=== PATIENT | female | born 1980 | race Caucasian/White ===

== ENCOUNTER 2018-05-02 05:39 | Inpatient (IN) ==
[2018-05-02] MEDS ORDERED: ceFAZolin Inj 2,000 MG in Sodium Chlor 0.9% Inj 80 ML IV.SIG SCH (06:00)
[2018-05-02] MEDS ORDERED: Citric Acid/Sodium Citrate Liq 30 ML UDC PO SCH (06:00)
[2018-05-02 06:20] LABS: Baso # (Auto) 0.1 th/mm3 (0.0-0.2); Baso % (Auto) 0.4 % (0.0-2.0); Eos # (Auto) 0.2 th/mm3 (0.0-0.4); Eos % (Auto) 1.3 % (0.0-4.0); Hematocrit 36.7 % (35.0-46.0); Hemoglobin 12.8 gm/dL (11.6-15.3); Lymph # (Auto) 3.3 th/mm3 (1.0-4.8); Lymph % (Auto) 22.5 % (9.0-44.0); Mean Corpuscular Hemoglobin 32.1 pg (27.0-34.0); Mean Corpuscular Volume 91.9 fL (80.0-100.0); Mean Platelet Volume 8.1 fL (7.0-11.0); Mono # (Auto) 1.3 th/mm3 (0.0-0.9); Mono % (Auto) 9.1 % (0.0-8.0); Neut # (Auto) 9.7 th/mm3 (1.8-7.7); Neut % (Auto) 66.7 % (16.0-70.0); Platelet Count 223 th/mm3 (150-450); Red Blood Count 3.99 mil/mm3 (4.00-5.30); Red Cell Distribution Width 12.4 % (11.6-17.2); White Blood Count 14.5 th/mm3 (4.0-11.0)
[2018-05-02 06:30] LABS: Bilirubin,Urine Negative (Negative); Clarity,Urine Clear (Clear); Color,Urine Yellow (Yellw/Straw); Glucose,Urine (UA) Negative (Negative); Leukocyte Esterase,Urine Negative (Negative); Nitrite,Urine Negative (Negative); Urobilinogen,Urine 0.2 mg/dL (Less than 2)
[2018-05-02 06:36] LABS: Amphetamine Screen,Urine Neg (Neg); Barbiturate Screen,Urine Neg (Neg); Cannabinoid Screen,Urine Neg (Neg); Cocaine Screen,Urine Neg (Neg)
[2018-05-02 06:37] LABS: Opiate Screen,Urine Neg (Neg); Specific Gravity,Urine 1.029 (1.002-1.035)
[2018-05-02 06:38] LABS: Bacteria,Urine Rare /hpf; Squamous Epithelial Cell,Urine 0-5 /hpf (0-5); WBC,Urine 0-5 /hpf (0-5)
[2018-05-02 06:39] LABS: Mucus,Urine Few /lpf (Occasional)
[2018-05-02] MEDS ORDERED: Morphine Sulfate PF Inj 5 MG/10 ML Ampul ONE (07:09)
[2018-05-02] MEDS ORDERED: Naloxone Inj 0.4 MG/ML Vial IV.PUSH PRN (07:26)
[2018-05-02] MEDS ORDERED: fentaNYL Citrate Inj 100 MCG/2 ML Ampul ONE (07:54)
[2018-05-02] MEDS ORDERED: Simethicone 80 MG Chew Tablet PO PRN (08:45)
[2018-05-02] MEDS ORDERED: Oxytocin 30 Units/500ml Premix 30 UNITS/500 ML BAG IV.SIG ONE (08:45)
[2018-05-02] MEDS ORDERED: Acetaminophen 325 MG Tablet PO PRN (08:45)
--- NOTE | 2018-05-02 08:55 | P.OBDELI ---
Procedure Note Performed by: Brigido Parr MD Procedure: Repeat Low Transverse Section, Other (bilateral tubal ligation; single subserousal myomectomy) Indication for Delivery: Desired elective repeat Previous Condition: Myomectomy (anterior uterine surface, subserousal) Informed Consent Obtained: For anesthesia, For procedure Confirmed Correct: Patient, Procedure, Site, Time-out taken Anesthesia: Spinal Medication Prior to Procedure: As documented in eMAR Monitoring During Procedure: Blood pressure monitoring, personnel monitor, doppler, Pulse oximetry Urinary Catheter: Inserted using sterile technique, To dependent drainage Sterile Preparation: Duraprep, In usual fashion Position: Supine with wedge to right side, Supine with safety belt applied - Operative Features Skin Incision: Pfannenstiel Uterine Incision: Low transverse w/knife / scissors Membranes Ruptured: Artificially, Appearance of fluid (clear) Presentation: Occiput anterior Status of : Viable, Cord blood, Umbilical cord, Nursery present Placenta Delivered: Intact Medications: Antibiotics, Oxytocin Estimated blood loss (mL): 700 Procedure Tolerated: Well Maternal Condition: Stable Baby Condition: Stable - Infant : Female Infant Infant Delivery Date: 05/02/18 Weight: 3.062 kg Delivery of Infant: Assisted (vacuum x 1 pull) score (1 min): 9 score (5 min): 9
[2018-05-02] MEDS ORDERED: Oxytocin 30 Units/500ml Premix 30 UNITS/500 ML BAG ONE (09:05)
--- NOTE | 2018-05-02 09:23 | MP ---
cc: Brigido Parr MD DATE OF OPERATION: 05/02/2018 PREOPERATIVE DIAGNOSES: 1. Term intrauterine . 2. History of previous section for elective repeat section and tubal ligation. 3. History of uterine fibroid. 4. Upper respiratory infection. PROCEDURE: Repeat low transverse section, bilateral tubal ligation with modified Osbaldo technique and simple subserosal myomectomy of anterior fibroid approximately 5 cm. POSTOPERATIVE DIAGNOSIS: 1. Term intrauterine . 2. History of previous section for elective repeat section and tubal ligation. 3. History of uterine fibroid. SURGEON: Brigido Parr MD ANESTHESIA: Spinal. ESTIMATED BLOOD LOSS: 700 mL. DRAINS: Gibson to gravity. OPERATIVE FINDINGS: delivered with the aid of a vacuum x 1 pull. Apgars were 9 at 1 minute and 9 at 5. Baby weighed 6 pounds 12 ounces, clear fluid. 3-vessel cord. Normal fallopian tubes and ovaries, 5 cm anterior subserosal fibroid sent to pathology. INDICATIONS FOR THE PROCEDURE: Patient with a history of previous section for elective repeat, also elected for bilateral tubal ligation for sterilization at the time. Also, a discussion, if the fibroid was simple in the context of being able to be resected at the time of the , the patient consented for. PROCEDURE DESCRIPTION: The patient received Ancef 2 grams prophylactically. She had a documented LATEX ALLERGY and appropriate precautions were taken. She underwent spinal anesthetic with excellent result. She was prepped and draped. Gibson was inserted by sterile technique. Sequentials were placed on the lower extremities for venous thromboembolism prophylaxis. Timeout was conducted, agreed by all present in the room. The patient had excellent pain control. A Pfannenstiel incision was identified and then utilized taking the incision through the subcutaneous layer to the fascia. The fascia was scarred and distorted from the previous . This was opened sharply allowing identification of the rectus and then opening the rectus muscle in the midline through the peritoneum without complication. The incision was extended. Bladder blade was placed. The peritoneum was then incised to allow the bladder to be pushed inferiorly to the incision. The incision was then made with a scalpel transversely in the lower uterine segment with clear fluid. The infant was delivered with the aid of a vacuum to avoid trauma to the incision. Good tone and cry were noted. Delayed cord clamping for 45 seconds was accomplished without difficulty. The was then taken to the nursery staff present in good condition, good tone, vigorous cry. The cord sample was obtained. Placenta was removed intact. Uterus was then exteriorized, closing the uterine hysterotomy with a double closure using 0 Monocryl first as a running locking suture followed by a second imbricating suture. The myoma, which was the anterior surface towards the fundus, was excised using the Bovie taking down the perineum and then just minimal entry into the myometrial surface. This was then closed with a double layer of 0 Monocryl, first as a running locking suture, followed by a second layer of interrupted [id number] sutures with excellent result. The fallopian tubes were identified. The mesentery was opened using the Bovie and then using a 2-0 plain suture proximally and distally, the fallopian tubes were tied. Excision of the mid isthmic portion approximately 4 cm was removed. The ampullary portion on the left side was removed, as well. The tubal site was dry. There was no hematoma. The uterus was returned to its normal anatomic position in the pelvis. All free fluid was evacuated. The pelvis was then irrigated with clear normal saline and then all free fluid was aspirated. No evidence of hematoma. No active bleeding. A piece of Interceed was then placed over the myomectomy incision and then the peritoneal layer was closed with a running suture of 2-0 Monocryl, reapproximating the muscle bellies with interrupted 2-0 Monocryl and then closed the fascia with 0 Vicryl in a simple running fashion. The subcutaneous space was irrigated. Any small bleeders were cauterized and then closure of the space with a running 2-0 Monocryl, followed by a #1 Stratafix suture to close the skin. Steri-Strips were applied. Dressing was applied. The final counts were correct. The patient was stable. She was taken to the recovery room on room air and was doing well. MD JONATHAN Ronquillo/ELAN , 09:00 AM , 09:09 AM
[2018-05-02] MEDS: Amoxicillin/Clavulanate 500/125 MG Tablet PO SCH ×2 (11:46→20:40)
[2018-05-02] MEDS: guaiFENesin/Codeine Syrup 200 MG/20 MG 10 ML UDC PO PRN ×2 (11:47→17:36)
[2018-05-02] MEDS ORDERED: Phenylephrine/NS 1000 MCG/10ML Syringe IV.PUSH ONE (12:00)
[2018-05-02] MEDS ORDERED: Oxytocin 30 Units/500ml Premix 30 UNITS/500 ML BAG IV.SIG PRN (13:45)
[2018-05-02] MEDS: Ibuprofen 600 MG Tablet PO PRN ×2 (15:28→21:25)
[2018-05-02] MEDS: Senna/Docusate Sodium 8.6/50 MG Tablet PO PRN (20:40)
[2018-05-03] MEDS: guaiFENesin/Codeine Syrup 200 MG/20 MG 10 ML UDC PO PRN ×4 (00:31→21:35)
[2018-05-03] MEDS: Ibuprofen 600 MG Tablet PO PRN ×3 (03:46→17:19)
[2018-05-03] MEDS: Senna/Docusate Sodium 8.6/50 MG Tablet PO PRN ×2 (07:52→21:35)
[2018-05-03] MEDS: Amoxicillin/Clavulanate 500/125 MG Tablet PO SCH (08:01)
[2018-05-03 09:46] LABS: Baso % (Auto) 0.2 % (0.0-2.0); Eos # (Auto) 0.2 th/mm3 (0.0-0.4); Eos % (Auto) 2.3 % (0.0-4.0); Hematocrit 31.7 % (35.0-46.0); Lymph # (Auto) 2.1 th/mm3 (1.0-4.8); Lymph % (Auto) 19.4 % (9.0-44.0); Mean Corpuscular HGB Conc 34.9 % (32.0-36.0); Mean Corpuscular Hemoglobin 32.5 pg (27.0-34.0); Mean Corpuscular Volume 93.1 fL (80.0-100.0); Mean Platelet Volume 8.2 fL (7.0-11.0); Mono % (Auto) 8.9 % (0.0-8.0); Neut # (Auto) 7.5 th/mm3 (1.8-7.7); Neut % (Auto) 69.2 % (16.0-70.0); Platelet Count 199 th/mm3 (150-450); Red Cell Distribution Width 12.4 % (11.6-17.2); White Blood Count 10.8 th/mm3 (4.0-11.0)
--- NOTE | 2018-05-03 12:41 | P.PNOB ---
Subjective Post op day: 1 Interval history: nursing well no complaints Objective Vital Signs/I&O: Vital Signs 05/02/18 13:00 05/02/18 16:00 05/02/18 19:50 Temperature 98.4 F 98.1 F 98.1 F Pulse Rate 75 67 64 Respiratory Rate 18 18 18 Blood Pressure 106/65 111/67 116/72 05/03/18 00:30 05/03/18 08:00 Temperature 98.1 F 98.1 F Pulse Rate 81 77 Respiratory Rate 16 20 Blood Pressure 109/70 107/71 Result Diagrams: 05/03/18 08:32 Objective Remarks: GENERAL: Well-nourished, well-developed patient. CARDIOVASCULAR: Regular rate and rhythm without murmurs, gallops, or rubs. RESPIRATORY: Breath sounds equal bilaterally. No accessory muscle use. ABDOMEN/GI: Abdomen soft, non-tender, bowel sounds present. Incision: Clean, dry and intact. No martina! Fundus: Firm, non-tender at umbilicus. GENITOURINARY: Light to moderate bleeding. EXTREMITIES: No cyanosis or edema, non-tender, without signs of DVT. Medications and IVs: Active Medications Acetaminophen (Tylenol) 650 mg PO Q6H PRN PRN Reason: PAIN SCALE 1 TO 2 Amoxicillin/Clavulanate Potassium (Augmentin 500/125 Mg) 1 tab PO Q12HR [facility] Last Admin: 05/03/18 08:01 Dose: 1 tab Citric Acid/Sodium Citrate (Sodium Citrate/Citric Acid Liq) 30 ml PO WASTE ELIMINATION [facility] Stop: 05/06/18 05:59 Last Admin: 05/02/18 07:06 Dose: 30 ml Diphtheria/Pertussis/Tetanus Vacc (Boostrix Vaccine Inj) 0.5 ml IM .ONCE ONE Stop: 05/03/18 16:01 Guaifenesin/Codeine Phosphate (Robitussin Ac 200/20 Mg/10 Ml Liq) 10 ml PO Q6H PRN PRN Reason: COUGH Last Admin: 05/03/18 07:52 Dose: 10 ml Lactated Ringer's (Lr 1000 Ml Inj) 1,000 mls @ 150 mls/hr IV.CONT .Q6H40M [facility] Last Admin: 05/02/18 07:06 Dose: 150 mls/hr Cefazolin Sodium 2,000 mg/ (Sodium Chloride) 100 mls @ 200 mls/hr IV.SIG WASTE ELIMINATION [facility]MUND Stop: 05/06/18 05:59 Last Admin: 05/02/18 07:06 Dose: 200 mls/hr Oxytocin (Pitocin 30 Units/Ns 500 Ml Premix) 30 units in 500 mls @ 100 mls/hr IV.SIG PRN PRN PRN Reason: Heavy bleeding Stop: 05/03/18 13:44 Ibuprofen (Motrin) 600 mg PO Q6HR PRN PRN Reason: cramping Last Admin: 05/03/18 10:08 Dose: 600 mg Ketorolac Tromethamine (Toradol Inj) 30 mg IM Q6H PRN PRN Reason: SEE LABEL COMMENTS Stop: 05/07/18 09:04 Measles/Mumps/Rubella Vaccine Live (M-M-R Ii Vaccine Inj) 0.5 ml SQ .ONCE ONE Stop: 05/03/18 16:01 Ondansetron HCl (Zofran Inj) 4 mg IV.PUSH Q6H PRN PRN Reason: NAUSEA OR VOMITING Oxycodone/Acetaminophen (Percocet 5/325 Mg) 1 tab PO Q4H PRN PRN Reason: PAIN SCALE 3 TO 5 Last Admin: 05/03/18 03:47 Dose: 1 tab Oxycodone/Acetaminophen (Percocet 5/325 Mg) 2 tab PO Q4H PRN PRN Reason: PAIN SCALE 6 TO 10 Last Admin: 05/03/18 07:51 Dose: 2 tab Senna/Docusate Sodium (Didi-Colace) 2 tab PO Q12H PRN PRN Reason: CONSTIPATION Last Admin: 05/03/18 07:52 Dose: 2 tab Simethicone (Mylicon Chew) 80 mg PO QID PRN PRN Reason: FLATULENCE Sodium Chloride (Ns Flush) 2 ml IV.FLUSH BID [facility]MUND Last Admin: 05/02/18 20:35 Dose: 2 ml Sodium Chloride (Ns Flush) 2 ml IV.FLUSH PRN PRN PRN Reason: FLUSH AFTER USING IV ACCESS Assessment and Plan - Diagnosis (1) care following delivery Code(s): Z39.2 - Encounter for routine follow-up Status: Acute - Plan anticipate discharge on POD 2 or 3
[2018-05-03] MEDS ORDERED: Measles/Mumps/Rubella Vaccine Inj 0.5 ML Vial SQ ONE (16:00)
[2018-05-03] MEDS ORDERED: Diphtheria/Tetanus/Pertussis Vaccine Inj 0.5 ML Syringe IM ONE (16:00)
[2018-05-04] MEDS: Amoxicillin/Clavulanate 500/125 MG Tablet PO SCH ×3 (02:58→22:00)
[2018-05-04] MEDS: guaiFENesin/Codeine Syrup 200 MG/20 MG 10 ML UDC PO PRN ×4 (03:02→22:52)
[2018-05-04] MEDS: Ibuprofen 600 MG Tablet PO PRN ×4 (03:02→22:53)
[2018-05-04] MEDS: Senna/Docusate Sodium 8.6/50 MG Tablet PO PRN ×2 (09:58→22:00)
--- NOTE | 2018-05-04 11:02 | P.PNOB ---
Subjective Post op day: 2 Interval history: POD#2; improving cough, pain well controlled, anticipate D/c for tomorrow Objective Vital Signs/I&O: Vital Signs 05/03/18 20:00 05/04/18 08:00 Temperature 97.6 F 97.8 F Pulse Rate 72 73 Respiratory Rate 18 18 Blood Pressure 127/67 118/70 Result Diagrams: 05/03/18 08:32 Objective Remarks: GENERAL: Well-nourished, well-developed patient. CARDIOVASCULAR: Regular rate and rhythm without murmurs, gallops, or rubs. RESPIRATORY: Breath sounds equal bilaterally. No accessory muscle use. ABDOMEN/GI: Abdomen soft, non-tender, bowel sounds present. Incision: Clean, dry and intact. Fundus: Firm, non-tender at umbilicus. GENITOURINARY: Light to moderate bleeding. EXTREMITIES: No cyanosis or edema, non-tender, without signs of DVT. Medications and IVs: Active Medications Acetaminophen (Tylenol) 650 mg PO Q6H PRN PRN Reason: PAIN SCALE 1 TO 2 Amoxicillin/Clavulanate Potassium (Augmentin 500/125 Mg) 1 tab PO Q12HR [facility] Last Admin: 05/04/18 09:58 Dose: 1 tab Citric Acid/Sodium Citrate (Sodium Citrate/Citric Acid Liq) 30 ml PO BAG LINER [facility] Stop: 05/06/18 05:59 Last Admin: 05/02/18 07:06 Dose: 30 ml Guaifenesin/Codeine Phosphate (Robitussin Ac 200/20 Mg/10 Ml Liq) 10 ml PO Q6H PRN PRN Reason: COUGH Last Admin: 05/04/18 09:57 Dose: 10 ml Lactated Ringer's (Lr 1000 Ml Inj) 1,000 mls @ 150 mls/hr IV.CONT .Q6H40M [facility] Last Admin: 05/02/18 07:06 Dose: 150 mls/hr Cefazolin Sodium 2,000 mg/ (Sodium Chloride) 100 mls @ 200 mls/hr IV.SIG BAG [facility] Stop: 05/06/18 05:59 Last Admin: 05/02/18 07:06 Dose: 200 mls/hr Ibuprofen (Motrin) 600 mg PO Q6HR PRN PRN Reason: cramping Last Admin: 05/04/18 09:57 Dose: 600 mg Ketorolac Tromethamine (Toradol Inj) 30 mg IM Q6H PRN PRN Reason: SEE LABEL COMMENTS Stop: 05/07/18 09:04 Ondansetron HCl (Zofran Inj) 4 mg IV.PUSH Q6H PRN PRN Reason: NAUSEA OR VOMITING Oxycodone/Acetaminophen (Percocet 5/325 Mg) 1 tab PO Q4H PRN PRN Reason: PAIN SCALE 3 TO 5 Last Admin: 05/03/18 03:47 Dose: 1 tab Oxycodone/Acetaminophen (Percocet 5/325 Mg) 2 tab PO Q4H PRN PRN Reason: PAIN SCALE 6 TO 10 Last Admin: 05/04/18 07:39 Dose: 2 tab Senna/Docusate Sodium (Didi-Colace) 2 tab PO Q12H PRN PRN Reason: CONSTIPATION Last Admin: 05/04/18 09:58 Dose: 2 tab Simethicone (Mylicon Chew) 80 mg PO QID PRN PRN Reason: FLATULENCE Sodium Chloride (Ns Flush) 2 ml IV.FLUSH BID [facility]MUND Last Admin: 05/03/18 13:21 Dose: Not Given Sodium Chloride (Ns Flush) 2 ml IV.FLUSH PRN PRN PRN Reason: FLUSH AFTER USING IV ACCESS Assessment and Plan - Diagnosis (1) care following delivery Code(s): Z39.2 - Encounter for routine follow-up Status: Acute - Plan POD#2, S/P repeat Cd, BTL and MYOMECTOMY. cough is improving with cough syrup. anticipate discharge on POD 3 Discharge Planning: POD#3 - Attending Attestation seen by me
[2018-05-05] MEDS: guaiFENesin/Codeine Syrup 200 MG/20 MG 10 ML UDC PO PRN ×2 (05:00→11:31)
[2018-05-05] MEDS: Ibuprofen 600 MG Tablet PO PRN ×2 (05:00→11:32)
--- NOTE | 2018-05-05 08:05 | P.PNOB ---
Subjective Post op day: 3 Objective Result Diagrams: 05/03/18 08:32 Objective Remarks: GENERAL: Well-nourished, well-developed patient. CARDIOVASCULAR: Regular rate and rhythm without murmurs, gallops, or rubs. RESPIRATORY: Breath sounds equal bilaterally. No accessory muscle use. ABDOMEN/GI: Abdomen soft, non-tender, bowel sounds present. Incision: Clean, dry and intact. Fundus: Firm, non-tender at umbilicus. GENITOURINARY: Light to moderate bleeding. EXTREMITIES: No cyanosis or edema, non-tender, without signs of DVT. Medications and IVs: Active Medications Acetaminophen (Tylenol) 650 mg PO Q6H PRN PRN Reason: PAIN SCALE 1 TO 2 Amoxicillin/Clavulanate Potassium (Augmentin 500/125 Mg) 1 tab PO Q12HR [facility] Last Admin: 05/04/18 22:00 Dose: 1 tab Citric Acid/Sodium Citrate (Sodium Citrate/Citric Acid Liq) 30 ml PO P[employer]ACH[employer]PERATOR [facility] Stop: 05/06/18 05:59 Last Admin: 05/02/18 07:06 Dose: 30 ml Guaifenesin/Codeine Phosphate (Robitussin Ac 200/20 Mg/10 Ml Liq) 10 ml PO Q6H PRN PRN Reason: COUGH Last Admin: 05/05/18 05:00 Dose: 10 ml Lactated Ringer's (Lr 1000 Ml Inj) 1,000 mls @ 150 mls/hr IV.CONT .Q6H40M [facility] Last Admin: 05/02/18 07:06 Dose: 150 mls/hr Cefazolin Sodium 2,000 mg/ (Sodium Chloride) 100 mls @ 200 mls/hr IV.SIG [employer] [facility] Stop: 05/06/18 05:59 Last Admin: 05/02/18 07:06 Dose: 200 mls/hr Ibuprofen (Motrin) 600 mg PO Q6HR PRN PRN Reason: cramping Last Admin: 05/05/18 05:00 Dose: 600 mg Ketorolac Tromethamine (Toradol Inj) 30 mg IM Q6H PRN PRN Reason: SEE LABEL COMMENTS Stop: 05/07/18 09:04 Ondansetron HCl (Zofran Inj) 4 mg IV.PUSH Q6H PRN PRN Reason: NAUSEA OR VOMITING Oxycodone/Acetaminophen (Percocet 5/325 Mg) 1 tab PO Q4H PRN PRN Reason: PAIN SCALE 3 TO 5 Last Admin: 05/03/18 03:47 Dose: 1 tab Oxycodone/Acetaminophen (Percocet 5/325 Mg) 2 tab PO Q4H PRN PRN Reason: PAIN SCALE 6 TO 10 Last Admin: 05/05/18 05:00 Dose: 2 tab Senna/Docusate Sodium (Didi-Colace) 2 tab PO Q12H PRN PRN Reason: CONSTIPATION Last Admin: 05/04/18 22:00 Dose: 2 tab Simethicone (Mylicon Chew) 80 mg PO QID PRN PRN Reason: FLATULENCE Sodium Chloride (Ns Flush) 2 ml IV.FLUSH BID [facility]UN[facility] Last Admin: 05/03/18 13:21 Dose: Not Given Sodium Chloride (Ns Flush) 2 ml IV.FLUSH PRN PRN PRN Reason: FLUSH AFTER USING IV ACCESS Assessment and Plan - Diagnosis (1) care following delivery Code(s): Z39.2 - Encounter for routine follow-up Status: Acute - Plan POD#3, S/P repeat Cd, BTL and MYOMECTOMY. cough is improving with cough syrup. rx on chart. Percocet rx, eforsce reviewed. anticipate discharge on POD 3 Discharge Planning: POD#3
[2018-05-05] MEDS: Senna/Docusate Sodium 8.6/50 MG Tablet PO PRN (11:32)
[2018-05-05] MEDS: Amoxicillin/Clavulanate 500/125 MG Tablet PO SCH (11:34)
== END 2018-05-05 14:05 | disposition home or self-care (01) ==
LOC: H2E 05:39 → H1EA 09:59
PROVIDERS: ADMIT Obstetrics & Gynecology; ATTEND Obstetrics & Gynecology